=== PATIENT | male | born 1985 | race Caucasian/White ===

== ENCOUNTER 2024-09-15 11:11 | Emergency (ER) | payer SELFPAY | END 2024-09-15 13:55 | disposition home or self-care (01) | LOC: MW.ED 11:11 | DX: S43.401A Unspecified sprain of right shoulder joint, initial encounter (principal); Z75.3 Unavailability and inaccessibility of health-care facilities; X50.0XXA Overexertion from strenuous movement or load, initial encounter; Y99.0 Civilian activity done for income or pay | CPT/HCPCS: 73030; 99283; A9270 ==

== ENCOUNTER 2025-01-13 07:48 | Emergency (ER) | payer OTHER ==
[2025-01-13] MEDS: Diphtheria,Pertussis(Acell),Tetanus Vaccine 0.5 ML Syringe IM ONE (09:10)
== END 2025-01-13 09:29 ==
LOC: MW.ED 07:48
DX: S01.312A Laceration without foreign body of left ear, initial encounter (principal); F17.200 Nicotine dependence, unspecified, uncomplicated; Z23 Encounter for immunization; W26.8XXA Contact with other sharp object(s), not elsewhere classified, initial encounter
CPT/HCPCS: 12013; 90471; 90715; 99282; A9270